=== PATIENT | female | born 1955 | race Caucasian/White ===

== ENCOUNTER → 2019-01-20 | Outpatient (CLI) | payer MEDICARE, MEDICAID ==
--- NOTE | 2019-01-20 14:16 | REP ---
DUPLEX CAROTID SONOGRAPHY: HISTORY: Stenosis or occlusion bilateral carotid arteries. FINDINGS: Antegrade flow was observed in both vertebral arteries. RIGHT CAROTID: The patient is status post remote prior right carotid endarterectomy. Diffuse intimal thickening is seen in the common carotid artery on the right. There is mixed plaquing in the bulb and proximal ICA and proximal ECA. Color flow and spectral Doppler interrogation are unremarkable. Velocity Chart Right Carotid: PSV EDV Right CCA 67 cm/s Right ICA 133 cm/s 37 cm/s Right ECA 98 cm/s Right ICA/CCA ratio somewhat elevated at 1.98. IMPRESSION: 16-49% category narrowing in the right ICA by Doppler velocity criteria, probably near the upper end of this range. LEFT CAROTID: The left common carotid artery shows diffuse intimal thickening and some soft plaquing. There is moderate mixed plaquing in the bulb and proximal ICA and proximal ECA on two-dimensional scanning. Color flow and spectral Doppler interrogation are unremarkable. Velocity Chart Left Carotid: PSV EDV Left CCA 56 cm/s Left ICA 112 cm/s 28 cm/s Left ECA 79 cm/s Left ICA/CCA ratio 2.0. IMPRESSION: 16-49% category narrowing in the left ICA by Doppler velocity criteria. Electronically Signed by Naren Burciaga MD 01/20/2019 03:14 P
== END ==
LOC: M RAD 11:34
PROVIDERS: ATTEND Student in an Organized Health Care Education/Training Program
DX: I65.29 Occlusion and stenosis of unspecified carotid artery (principal)

== ENCOUNTER → 2022-05-25 | Outpatient (CLI) | payer MEDICARE, MEDICAID ==
[~2022-05-25] MED LIST: ATOR40TA75; FLUTISP; FOLI800C; ISOS1TAB36; LISI5TAB11; OMEP-173; OYST250T20 PO; PROL60SO; SULI150T
== END ==
LOC: M LABSMTC 10:41
PROVIDERS: ATTEND Anesthesiology
DX: Z01.818 Encounter for other preprocedural examination (principal); Z11.52 Encounter for screening for COVID-19

== ENCOUNTER 2022-05-27 11:20 | Day surgery (SDC) | payer MEDICARE, MEDICAID ==
[~2022-05-27] VITALS: Ht 162.6 cm; Wt 60.3 kg
[~2022-05-27 11:20] MED LIST changes: +BSS IRRIG/VANCO(10MG)/TOBRA(5MG)/EPINEPH(1:1000-0.5CC)500ML BAG-ORONLY IR ONE; +CEFUROXIME 1MG/0.1ML INTRACAMERAL INJ As Ordered ONE; +CYCLOPENTOLATE 1% OPHTH SOLN 2 ML BTL OD SCH; +LIDOCAINE 1% SDV 5ML VIAL As Ordered ONE; +LIDOCAINE 3.5 % 1ML OPHTH TOPICAL GEL OU ONE; +MIDAZOLAM INJ 2MG/2ML VIAL (J2250 PER 1MG) As Ordered ONE; +OFLOXACIN 0.3 % (OCUFLOX) OPTH SOL 5ML OD ONE; +PHENYLEPHRINE 2.5% OPHTH SOL 2ML OD SCH; +PHENYLEPHRINE HCL 10 % OPHTH. SOL 5ML OD PRN; +TROPICAMIDE 1% OPHTH SOLN 2ML OD SCH; +fentaNYL 100 MCG/2 ML INJECTION As Ordered ONE
[2022-05-27 14:44] VITALS: BP 122/57
== END 2022-05-27 15:06 | disposition home or self-care (01) ==
LOC: M SDC 11:20
PROVIDERS: ATTEND Ophthalmology
DX: H25.11 Age-related nuclear cataract, right eye (principal); I10 Essential (primary) hypertension
CPT/HCPCS: 66984; J0697; J2250; J3010; V2632

== ENCOUNTER → 2023-09-27 | Outpatient (CLI) | payer MEDICARE, MEDICAID ==
[~2023-09-27] MED LIST changes: -BSS IRRIG/VANCO(10MG)/TOBRA(5MG)/EPINEPH(1:1000-0.5CC)500ML BAG-ORONLY IR ONE; -CEFUROXIME 1MG/0.1ML INTRACAMERAL INJ As Ordered ONE; -CYCLOPENTOLATE 1% OPHTH SOLN 2 ML BTL OD SCH; -LIDOCAINE 1% SDV 5ML VIAL As Ordered ONE; -LIDOCAINE 3.5 % 1ML OPHTH TOPICAL GEL OU ONE; -MIDAZOLAM INJ 2MG/2ML VIAL (J2250 PER 1MG) As Ordered ONE; -OFLOXACIN 0.3 % (OCUFLOX) OPTH SOL 5ML OD ONE; -PHENYLEPHRINE 2.5% OPHTH SOL 2ML OD SCH; -PHENYLEPHRINE HCL 10 % OPHTH. SOL 5ML OD PRN; -TROPICAMIDE 1% OPHTH SOLN 2ML OD SCH; -fentaNYL 100 MCG/2 ML INJECTION As Ordered ONE
== END ==
LOC: M PLARAD 08:00
PROVIDERS: ATTEND Physician Assistant
DX: R91.1 Solitary pulmonary nodule (principal)
CPT/HCPCS: 78815; A9552

== ENCOUNTER → 2024-02-15 | Outpatient (CLI) | payer MEDICARE, MEDICAID | LOC: M PLAIMG 10:01 | PROVIDERS: ATTEND Internal Medicine Critical Care Medicine | DX: R91.8 Other nonspecific abnormal finding of lung field (principal) ==

== ENCOUNTER → 2025-04-19 | Outpatient (CLI) | payer MEDICARE, MEDICAID ==
[~2025-04-19] MED LIST changes: +DENO60SY2; -PROL60SO
== END ==
LOC: M RAD 14:19
PROVIDERS: ATTEND Internal Medicine Critical Care Medicine
DX: Z12.2 Encounter for screening for malignant neoplasm of respiratory organs (principal); Z87.891 Personal history of nicotine dependence; R91.8 Other nonspecific abnormal finding of lung field; J43.2 Centrilobular emphysema